=== PATIENT | female | born 1970 | race Caucasian/White ===

== ENCOUNTER → 2016-07-14 | Outpatient (CLI) | payer OTHER ==
[~2016-07-14] MED LIST: ACET-1256 PO; BCPILLS PO; CITA20TA4 PO; DOCU100C31 PO; FERR1TAB13 PO; IBUP-1449 PO; MULT-506 PO; NITR-5 PO; VNTHFA/IN INH
--- NOTE | 2016-07-14 15:07 | MAMMOGRAPHY REPORT ---
BILATERAL DIGITAL SCREENING MAMMOGRAM TOMOSYNTHESIS WITH CAD: 07/14/2016 CLINICAL HISTORY: Routine screening. Patient has no complaints. TECHNIQUE: Breast tomosynthesis in addition to standard 2D mammography was performed. Current study was also evaluated with a Computer Aided Detection (CAD) system. COMPARISON: Comparison is made to exams dated: 07/17/2015 mammogram, 06/21/2014 mammogram, 06/02/2012 m ammogram, 05/25/2011 mammogram, 05/21/2010 mammogram, and 05/06/2009 mammogram - [facility]. BREAST COMPOSITION: The tissue of both breasts is heterogeneously dense, which may obscure small ma sses. FINDINGS: No suspicious masses, calcifications, or areas of architectural distortion are noted in e ither breast. There has been no significant interval change compared to prior exams. IMPRESSION: ACR BI-RADS CATEGORY 1: NEGATIVE There is no mammographic evidence of malignancy. A 1 year screening mammogram is recommended. The p atient will receive written notification of the results. Approximately 10% of breast cancers are not detected with mammography. A negative mammographic repor t should not delay biopsy if a clinically suggestive mass is present. Anabela Omalley M.D. /:07/14/2016 14:19:19 Public Health Registrar: Anetet Ibrahim, [facility] letter sent: Normal 1/2 BI-RADS Code: ACR BI-RADS Category 1: Negative
== END | disposition home or self-care (01) ==
LOC: C.MAMM 08:54
PROVIDERS: ATTEND Nurse Practitioner Family
DX: Z12.31 Encounter for screening mammogram for malignant neoplasm of breast (principal)

== ENCOUNTER 2016-12-27 08:22 | Emergency (ER) | payer BC, OTHER ==
[~2016-12-27] VITALS: Ht 170.2 cm; Wt 95.1 kg
[2016-12-27 08:24] VITALS: Ht 170.2 cm; Wt 95.1 kg
[2016-12-27] MEDS ORDERED: CITA20TA4 PO (08:42)
[2016-12-27] MEDS ORDERED: FERR1TAB13 PO (08:42)
[2016-12-27] MEDS ORDERED: DOCU100C31 PO (08:42)
[2016-12-27] MEDS ORDERED: BCPILLS PO (08:42)
[2016-12-27] MEDS ORDERED: VNTHFA/IN INH (08:42)
[2016-12-27] MEDS ORDERED: MULT-506 PO (08:42)
[2016-12-27] MEDS ORDERED: IBUP-1449 PO (08:43)
[2016-12-27] MEDS ORDERED: ACET-1256 PO (08:43)
--- NOTE | 2016-12-27 09:26 | DIAGNOSTIC IMAGING REPORT ---
CHEST ONE VIEW PORTABLE CLINICAL HISTORY: 46 years-old Female presenting with fever. TECHNIQUE: Portable upright AP view of the chest was obtained. COMPARISON: None. FINDINGS: Cardiomediastinal silhouette normal. Lungs and pleural spaces clear. Osseous structures and upper abdomen normal. IMPRESSION: 1. No acute cardiopulmonary disease. Electronically signed by: Rodríguez Sanches M.D. 12/27/2016 9:24 AM Dictated Date/Time: 12/27/2016 9:24 AM
[2016-12-27 09:35] LABS: BASO % 0.2 %; BASO ABS # 0.03 K/uL (0-0.2); COMPLETE YES; EOS % 0.1 %; HEMATOCRIT 38.8 % (37-47); IG% 0.4 %; LYMPH % 10.7 %; LYMPH ABS # 1.76 K/uL (1.2-3.4); MEAN CELL VOLUME 87.6 fL (80-100); MEAN CORPUSCULAR HGB CONC 34.3 g/dl (32-36); MEAN PLATELET VOLUME 9.5 fL (7.4-10.4); MONO % 9.9 %; NEUT % 78.7 %; PLATELET COUNT 286 K/uL (130-400); RED BLOOD COUNT 4.43 M/uL (4.2-5.4)
[2016-12-27 09:52] LABS: URINE APPEARANCE CLOUDY (CLEAR); URINE BILIRUBIN NEG (NEG); URINE COLOR YELLOW; URINE EPITHELIAL CELL AUTO >30 /lpf (0-5); URINE NITRITE NEG (NEG); URINE SPECIFIC GRAVITY 1.006 (1.000-1.030); UROBILINOGEN NEG (NEG); ZZUR CULT IF INDIC CLEAN CATCH NO
[2016-12-27 09:53] LABS: MANUAL MICROSCOPIC REQUIRED? NO; REVIEW REQ? NO
[2016-12-27 09:53] LABS: BUN/CREATININE RATIO 5.1 (10-20); CALCIUM 8.8 mg/dl (8.5-10.1); CREATININE 0.79 mg/dl (0.60-1.20); POTASSIUM 2.9 mmol/L (3.5-5.1)
[2016-12-27] MEDS ORDERED: POTASSIUM CHLORIDE 10 MEQ TABCR PO STA (11:09)
[2016-12-27] MEDS ORDERED: CEFTRIAXONE SOD INJ 1 GM ADDVIAL IV STA (11:09)
[2016-12-27] MEDS ORDERED: NITR-5 PO (11:28)
--- NOTE | 2016-12-27 11:28 | EMERGENCY ROOM VISIT NOTE ---
History Report prepared by Tabby: Christal Yeager Under the Supervision of: Dr. Nathan Wynne D.O. First contact with patient: 08:59 Chief Complaint: FEVER Stated Complaint: FEVER History of Present Illness The patient is a 46 year old female who presents to the Emergency Room with complaints of persistent fever that started 1 week ago. The patient states that her fevers have been fluctuating between 100.3 and 100.7 but this morning her temperature was 101.3. The patient took Advil around 0000 last night and had Tylenol around 0515 this morning after noticing the fever. She states that she also experienced body aches last week but those have resolved while the fevers and chills have persisted. She also experienced diarrhea last week but that resolved yesterday. The patient denies rhinorrhea, cough, or any rashes. She states that she is experiencing a decreased appetite. The patient states that she got home from [facility] on December 11 and adds that she got bitten by several insects down there. The patient states that she was evaluated by Urgent Care 5 days ago and they suspected that she had Chikungunya virus. They told her to alternate Tylenol and Advil to control her fevers. The patient followed up with her PCP 3 days ago and they ordered a Chikungunya virus antibody blood test. The patient states that she experienced left upper quadrant abdominal pain 3 days ago when she was at her PCP so they tested her for mono which was negative. She states that the abdominal pain has resolved. The patient has not received the results of those tests yet. The patient called her PCP this morning and they recommended coming into the ED for further evaluation. Source of History: patient Onset: 1 week ago Position: other (global) Quality: other (fever) Timing: other (persistent) Modifying Factors (Relieving): tylenol, ibuprofen Associated Symptoms: + chills, + abdominal pain (resolved), + diarrhea ( resolved), No cough, No rash Note: decreased appetite, body aches, no rhinorrhea Review of Systems See HPI for pertinent positives & negatives. A total of 10 systems reviewed and were otherwise negative. Past Medical & Surgical Medical Problems: (1) History of mammogram Family History Breast cancer Social History Smoking Status: Never Smoker Marital Status: Housing Status: lives with family Current/Historical Medications Scheduled Control Pills ( Control Pills), 1 TAB PO DAILY Citalopram Hydrobromide (Citalopram Hydrobromide), 20 MG PO HS Docusate Sodium (Docusate Sodium), 100 MG PO DAILY Ferrous Sulfate (Kp Ferrous Sulfate), 325 MG PO DAILY Multivitamin (Multivitamin), 1 TAB PO DAILY Scheduled PRN Albuterol Hfa (Ventolin Hfa), 2 PUFFS INH Q4 PRN for SOB/Wheezing Ibuprofen Tab (Motrin), 400 MG PO for Pain Miscellaneous Medications Acetaminophen (Tylenol), 1,000 MG PO Allergies Coded Allergies: Amoxicillin (Unverified Allergy, Unknown, unk, 12/27/16) Cefuroxime (Unverified Allergy, Unknown, unk, 12/27/16) Clavulanic Acid (Unverified Allergy, Unknown, unk, 12/27/16) Doxycycline (Unverified Allergy, Unknown, nausea, 12/27/16) Sulfa Antibiotics (Unverified Allergy, Unknown, unk, 12/27/16) Physical Exam Vital Signs Date Time Temp Pulse Resp B/P (MAP) Pulse Ox O2 Delivery O2 Flow Rate FiO2 12/27/16 10:34 37.1 91 18 121/67 99 Room Air 12/27/16 08:24 36.5 108 18 118/71 98 Room Air Physical Exam CONSTITUTIONAL/VITAL SIGNS: Reviewed / noted above. GENERAL: Non-toxic in appearance. INTEGUMENTARY: Warm, dry, and [place]. HEAD: Normocephalic. EYES: without scleral icterus or trauma. ENT/OROPHARYNX: clear and moist. LYMPHADENOPATHY/NECK: Is supple without lymphadenopathy or meningismus. RESPIRATORY: Lungs clear and equal. CARDIOVASCULAR: Regular rate and rhythm. GI/ABDOMEN: Soft and nontender. No organomegaly or pulsatile mass. No rebound or guarding. Normal bowel sounds. EXTREMITIES: Warm and well perfused. BACK: No CVA tenderness. NEUROLOGICAL: Intact without focal deficits. PSYCHIATRIC: normal affect. MUSCULOSKELETAL: Normally developed with good muscle tone. Medical Decision & Procedures ER Provider Diagnostic Interpretation: Radiology results as stated below per my review and radiologist interpretation: CHEST ONE VIEW PORTABLE FINDINGS: Cardiomediastinal silhouette normal. Lungs and pleural spaces clear. Osseous structures and upper abdomen normal. IMPRESSION: 1. No acute cardiopulmonary disease. Electronically signed by: Rodríguez Sanches M.D. 12/27/2016 9:24 AM Dictated Date/Time: 12/27/2016 9:24 AM Laboratory Results 12/27/16 09:15 Red Blood Count 4.43, Mean Corpuscular Volume 87.6, Mean Corpuscular Hemoglobin 30.0, Mean Corpuscular Hemoglobin Concent 34.3, Mean Platelet Volume 9.5, Neutrophils (%) (Auto) 78.7, Lymphocytes (%) (Auto) 10.7, Monocytes (%) (Auto) 9.9, Eosinophils (%) (Auto) 0.1, Basophils (%) (Auto) 0.2, Neutrophils # (Auto) 12.90, Lymphocytes # (Auto) 1.76, Monocytes # (Auto) 1.62, Eosinophils # (Auto) 0.02, Basophils # (Auto) 0.03 12/27/16 09:15 Test 12/27/16 09:15 12/27/16 09:33 White Blood Count 16.40 K/uL (4.8-10.8) Red Blood Count 4.43 M/uL (4.2-5.4) Hemoglobin 13.3 g/dL (12.0-16.0) Hematocrit 38.8 % (37-47) Mean Corpuscular Volume 87.6 fL (80-100) Mean Corpuscular Hemoglobin 30.0 pg (25-34) Mean Corpuscular Hemoglobin Concent 34.3 g/dl (32-36) Platelet Count 286 K/uL (130-400) Mean Platelet Volume 9.5 fL (7.4-10.4) Neutrophils (%) (Auto) 78.7 % Lymphocytes (%) (Auto) 10.7 % Monocytes (%) (Auto) 9.9 % Eosinophils (%) (Auto) 0.1 % Basophils (%) (Auto) 0.2 % Neutrophils # (Auto) 12.90 K/uL (1.4-6.5) Lymphocytes # (Auto) 1.76 K/uL (1.2-3.4) Monocytes # (Auto) 1.62 K/uL (0.11-0.59) Eosinophils # (Auto) 0.02 K/uL (0-0.5) Basophils # (Auto) 0.03 K/uL (0-0.2) RDW Standard Deviation 39.4 fL (36.4-46.3) RDW Coefficient of Variation 12.2 % (11.5-14.5) Immature Granulocyte % (Auto) 0.4 % Immature Granulocyte # (Auto) 0.07 K/uL (0.00-0.02) Anion Gap 8.0 mmol/L (3-11) Est Creatinine Clear Calc Drug Dose 104.2 ml/min Estimated GFR () 103.3 Estimated GFR (Non- 89.1 BUN/Creatinine Ratio 5.1 (10-20) Calcium Level 8.8 mg/dl (8.5-10.1) Lyme Disease IgG Antibody NEG (NEG) Urine Color YELLOW Urine Appearance CLOUDY (CLEAR) Urine pH 7.0 (4.5-7.5) Urine Specific [place] 1.006 (1.000-1.030) Urine Protein TRACE (NEG) Urine Glucose (UA) NEG (NEG) Urine Ketones TRACE (NEG) Urine Occult Blood 2+ (NEG) Urine Nitrite NEG (NEG) Urine Bilirubin NEG (NEG) Urine Urobilinogen NEG (NEG) Urine Leukocyte Esterase LARGE (NEG) Urine WBC (Auto) >30 /hpf (0-5) Urine RBC (Auto) 5-10 /hpf (0-4) Urine Hyaline Casts (Auto) 0 /lpf (0-5) Urine Epithelial Cells (Auto) >30 /lpf (0-5) Urine Bacteria (Auto) 4+ (NEG) Laboratory results as stated above per my review. ED Course 0900: Previous medical records were reviewed. The patient was evaluated in room B2. A complete history and physical examination was performed. 1109: Ordered Potassium Chloride 40 meq PO, Rocephin Inj 1 gm IV 1116: On reevaluation, the patient is doing well. I discussed the results and findings with the patient. She verbalized agreement of the treatment plan. She was discharged home. Medical Decision Differential includes viral illness, influenza, streptococcal pharyngitis, meningitis, pneumonia, sinusitis, UTI, pyelonephritis, and otitis media. This is a 46-year-old female who presents to the ED with a chief complaint of intermittent fevers since returning from a vacation in [place]. The patient was there until the 15th of the month. She has been having some intermittent fevers since that time for the past week. Temperatures have been between 100.3 and 100.7. She saw her PCP on Tuesday and was told she had an elevated white blood cell count. A negative mono test was done. Viral tests for Chikungunya are pending. The patient states that she has not had her urine tested. Her exam is relatively unremarkable. White blood cell count was 16.4. Potassium is 2.9. Urine is suggestive of infection. Lyme test was negative. A chest x- ray was negative for acute disease. The patient was treated with IV Rocephin and by mouth Macrobid. She'll be discharged on Macrobid. She is felt stable for discharge. Medication Reconcilliation Current Medication List: was personally reviewed by me Blood Pressure Screening Patient's blood pressure: Normal blood pressure Impression Primary Impression: UTI (urinary tract infection) Scribe Attestation The scribe's documentation has been prepared under my direction and personally reviewed by me in its entirety. I confirm that the note above accurately reflects all work, treatment, procedures, and medical decision making performed by me. Departure Information Dispostion Home / Self-Care Prescriptions Nitrofurantoin Monohyd Macrocr (Macrobid) 100 Mg Cap 100 MG PO BID, #14 CAP Prov: Nathan Wynne D.O. 12/27/16 Referrals Fior Hagen (PCP) Forms HOME CARE DOCUMENTATION FORM, IMPORTANT VISIT INFORMATION Patient Instructions [facility], UTI Additional Instructions Follow-up with your doctor for further care and evaluation in 1-2 days. Return to the emergency department for worsening or new symptoms or any concerns. You have been examined and treated today on an emergency basis only. This is not a substitute for, or an effort to provide, complete comprehensive medical care. It is impossible to recognize and treat all injuries or illnesses in a single emergency department visit. It is therefore important that you follow up closely with your doctor. Call as soon as possible for an appointment. Macrobid as prescribed. Urine culture has been sent. This will take 1-2 days to come back.
[2016-12-27] MEDS ORDERED: NITROFURANTOIN MONOHYDRATE 100 MG CAP PO ONE (11:30)
[2016-12-27 13:06] VITALS: BP 114/68; PULSE 84; O2SAT 98
[2016-12-27 13:09] VITALS: TEMP 38.3
[2016-12-27] MEDS ORDERED: ACETAMINOPHEN 500 MG TAB PO STA (13:12)
[2016-12-27] MEDS ORDERED: ACETAMINOPHEN 500 MG TAB PO ONE (13:14)
== END 2016-12-27 13:20 | disposition home or self-care (01) ==
LOC: C.EDB 08:23
DX: N39.0 Urinary tract infection, site not specified (principal); R50.9 Fever, unspecified

== ENCOUNTER → 2017-03-08 | Outpatient (CLI) | payer BC ==
--- NOTE | 2017-03-08 09:52 | DIAGNOSTIC IMAGING REPORT ---
R ANKLE MIN 3 VIEWS CLINICAL HISTORY: Right ankle pain following injury. COMPARISON: None FINDINGS: Alignment of the right ankle is anatomic. Talar dome is intact. No fracture or osseous lesion is present. IMPRESSION: Unremarkable right ankle radiographs. Electronically signed by: Felipe Dyson M.D. 03/08/2017 9:50 AM Dictated Date/Time: 03/08/2017 9:50 AM
== END | disposition home or self-care (01) ==
LOC: C.RDSM 12:14
PROVIDERS: ATTEND Internal Medicine
DX: M25.571 Pain in right ankle and joints of right foot (principal)